=== PATIENT | male | born 1955 | race Caucasian/White ===

== ENCOUNTER 2021-03-18 12:03 | Emergency (ER) | payer MEDICARE, MEDICAID ==
[~2021-03-18] VITALS: Ht 167.6 cm; Wt 58.6 kg
[2021-03-18 13:45] LABS: BASOPHILS % (AUTO) 1 % (0-1); EOSINOPHILS % (AUTO) 1 % (1-7); LYMPHOCYTES % (AUTO) 16 % (22-44); MEAN CORPUSCULAR HEMOGLOBIN 32.7 pg (27.5-34.5); MEAN CORPUSCULAR HGB CONC 35.1 g/dL (33.2-36.2); MEAN PLATELET VOLUME 7.2 fL (7.4-10.4); MONOCYTES % (AUTO) 6 % (2-9); NEUTROPHILS % (AUTO) 77 % (42-75); PLATELET COUNT 202 x10^3/uL (130-400); RED BLOOD COUNT 5.04 x10^6/uL (4.38-5.82); RED CELL DISTRIBUTION WIDTH 13.6 % (9.4-14.8)
[2021-03-18 13:46] LABS: ALANINE AMINOTRANSFERASE 35 U/L (12-78); ALBUMIN 3.9 g/dL (3.4-5.0); ANION GAP 6 mmol/L (5-15); CALCIUM 8.8 mg/dL (8.5-10.1); CHLORIDE 108 mmol/L (98-107); CREATININE 0.65 mg/dL (0.7-1.3)
[2021-03-18 13:55] LABS: MD NO
[2021-03-18 14:04] LABS: ALKALINE PHOSPHATASE 200 U/L (45-117); BILIRUBIN,TOTAL 0.4 mg/dL (0.2-1.0); TOTAL PROTEIN 7.5 g/dL (6.4-8.2); TROPONIN I < 0.015 ng/mL (0.000-0.045)
[2021-03-18] MEDS ORDERED: HYDROcodone/APAP 10/325 MG TABLET ONE (14:53)
--- NOTE | 2021-03-18 14:55 | NUR ---
no iv in place for ct exam
--- NOTE | 2021-03-18 15:00 | NUR ---
WATER GIVEN PER PT REQUEST, CLEARED WITH
[2021-03-18] MEDS ORDERED: OMNIPAQUE 350 MG/ML, 100ML BOTTLE ONE (15:50)
--- NOTE | 2021-03-18 16:11 | NUR ---
WARM BLANKET GIVEN. DENIES ANY OTHER NEEDS
--- NOTE | 2021-03-18 16:16 | NUR ---
URINE SENT TO LAB
--- NOTE | 2021-03-18 17:00 | NUR ---
PT VSS, EXTRA BLANKET GIVEN FOR COMFORT, WATER GIVEN
[2021-03-18 17:11] LABS: MICROSCOPIC NOT IND
[2021-03-18 17:23] LABS: AMPHETAMINE SCREEN, URINE Negative (Negative); BARBITURATE SCREEN, URINE Negative (Negative); BENZODIAZEPINE SCREEN, URINE Negative (Negative); CANNABINOID SCREEN, URINE Negative (Negative); COCAINE SCREEN, URINE Negative (Negative); METHADONE SCREEN, URINE Negative (Negative); OPIATE SCREEN, URINE Negative (Negative)
[2021-03-18] MEDS ORDERED: SODIUM CHLORIDE 0.9%, 500ML IVBOLUS ONE (17:30)
[2021-03-18 18:24] VITALS: BP 146/71
== END 2021-03-18 18:44 | disposition home or self-care (01) ==
LOC: ED 14:50
DX: R53.1 Weakness (principal); R53.83 Other fatigue; R10.9 Unspecified abdominal pain; R42 Dizziness and giddiness; F17.210 Nicotine dependence, cigarettes, uncomplicated; R07.89 Other chest pain
CPT/HCPCS: 36415; 71045; 71260; 74177; 80053; 80185; 80307; 81003; 83735; 84100; 84443; 84484; 85025; 93005; 99285; J7040; Q9967